=== PATIENT | female | born 1980 | race American Indian/Alaskan Native ===

== ENCOUNTER 2020-09-08 13:21 | Emergency (ER) | payer MEDICAID, OTHER ==
[~2020-09-08] VITALS: Ht 167.6 cm; Wt 149.7 kg
[2020-09-08 16:04] LABS: Urine Bacteria FEW /hpf (None Seen); Urine Blood 3+ /uL (Negative); Urine Mucus FEW (None Seen); Urine Specific Gravity 1.028 (1.001-1.035); Urine WBC 9 /hpf (0 - 5)
[2020-09-08 17:39] VITALS: BP 142/98
[2020-09-08] MEDS ORDERED: ONDANSETRON ODT 4 MG TAB PO ONE (18:15)
== END 2020-09-08 20:54 | disposition home or self-care (01) ==
LOC: ER 13:21
DX: A08.4 Viral intestinal infection, unspecified (principal); N39.0 Urinary tract infection, site not specified; Z88.0 Allergy status to penicillin; Z91.018 Allergy to other foods
CPT/HCPCS: 81001; 81025; 99283; Q0162